=== PATIENT | male | born 1995 | race Caucasian/White ===

== ENCOUNTER 2021-09-26 12:02 | Emergency (ER) | payer OTHER ==
[~2021-09-26] VITALS: Ht 175.3 cm; Wt 76.1 kg
[2021-09-26] MEDS ORDERED: ONDANSETRON PF 4 MG/2 ML VIAL. ONE (12:43)
[2021-09-26] MEDS ORDERED: MORPHINE SULFATE 4 MG/ML INJ. ONE (12:43)
[2021-09-26] MEDS ORDERED: MORPHINE SULFATE 4 MG/ML INJ. IV PRN ×2 (12:45→13:45)
[2021-09-26] MEDS ORDERED: ONDANSETRON PF 4 MG/2 ML VIAL. IVP ONE ×2 (12:45→13:45)
[2021-09-26] MEDS ORDERED: IV NORMAL SALINE 1000ML BAG 1,000 ML IV ONE (12:45)
[2021-09-26] MEDS ORDERED: IOHEXOL 300 MG/ML 100ML VIAL. IV ONE (13:00)
[2021-09-26 13:09] LABS: BASO % 1 % (0-3); EOS % 1 % (0-3); HEMATOCRIT 47.8 % (39.0-53.0); HEMOGLOBIN 16.2 g/dL (13.0-17.5); LYMPH # 2.3 x10^3/uL (1.0-4.8); LYMPH % 43 % (24-48); MEAN CORPUSCULAR HEMOGLOBIN 31 pg (25-35); MEAN CORPUSCULAR HGB CONC 34 g/dL (31-37); MEAN CORPUSCULAR VOLUME 91 fL (79-100); MONO # 0.4 x10^3/uL (0.0-1.1); MONO % 8 % (0-9); NEUT # 2.6 x10^3/uL (1.8-7.7); NEUT % 48 % (31-73); PLATELET COUNT 251 x10^3/uL (140-400); RED BLOOD COUNT 5.24 x10^6/uL (4.30-5.70); WHITE BLOOD COUNT 5.5 x10^3/uL (4.0-11.0)
[2021-09-26] MEDS ORDERED: CONTRAST GIVEN. MC PRN (13:15)
[2021-09-26 13:17] LABS: BACTERIA,URINE 0 /HPF (0-FEW); RBC,URINE 0 /HPF (0-2); WBC,URINE OCC /HPF (0-4)
[2021-09-26 13:20] LABS: CALCIUM 9.1 mg/dL (8.5-10.1); GFR 90.3; POTASSIUM 4.3 mmol/L (3.5-5.1)
--- NOTE | 2021-09-26 13:23 | RAD ---
PQRS Compliance Statement: One or more of the following individualized dose reduction techniques were utilized for this examinat ion: 1. Automated exposure control 2. Adjustment of the mA and/or kV according to patient size 3. Use of iterative reconstruction technique CT ABDOMEN+PELVIS W 09/26/2021 1:02 PM Indication: Abdominal pain, bloody stools COMPARISON: None available. TECHNIQUE: Multiple axial CT images of the abdomen and pelvis were obtained after intravenous demonst ration of nonionic contrast. Coronal and sagittal reformats are provided. FINDINGS: Visualized portions of the lung bases are clear. Heart size is within normal limits. No suspicious hepatic masses are identified. Liver is homogeneous in enhancement. Spleen, bilateral a drenal glands, and pancreas are normal in appearance. Gallbladder is present without adjacent inflamm atory changes. Spleen measures 12.0 cm in oblique craniocaudal dimension. The abdominal aorta is normal in course and caliber. There are no pathologically enlarged lymph nodes in the abdomen and pelvis. There is no abdominal free fluid. There is no free intraperitoneal air. Small and large bowel are normal in caliber. There is no evidence for bowel obstruction. There are no pericolonic inflammatory changes. Appendix is not definitively visualized. No pericecal inflammatory changes are identified. There is atrophy of the left kidney which measures 7.5 cm in craniocaudal dimension as compared to th e right kidney which measures 13.4 cm. Kidneys enhance symmetrically. No suspicious renal mass. No hy dronephrosis. No calculi identified within the ureters or urinary bladder. Urinary bladder is within normal limits given degree of distention. Prostate and seminal vesicles are normal. No suspicious oss eous abnormality is identified. IMPRESSION: No acute abnormalities identified within the abdomen and pelvis. There is atrophy of the left kidney. Appendix is not visualized and may be surgically absent. No pericecal inflammatory changes are identi fied. No bowel obstruction or inflammation. Electronically signed by: Elodia Arambula MD (09/26/2021 1:20 PM) [id number]
[2021-09-26 13:26] LABS: ALBUMIN/GLOBULIN RATIO 1.3 (1.0-1.7); TOTAL BILIRUBIN 0.6 mg/dL (0.2-1.0); TOTAL PROTEIN 7.1 g/dL (6.4-8.2)
--- NOTE | 2021-09-26 13:45 | PHYS DOC ---
Past Medical History Additional Past Medical Histor: PTSD,CHRONIC BACK PAIN,ADHD Past Surgical History: Appendectomy, Other Additional Past Surgical Histo: BACK,KNEE,EYEBROW SURGERY Smoking Status: Former Smoker Alcohol Use: None Adult General Chief Complaint Chief Complaint: ABDOMINAL PAIN HPI HPI Patient is a 25 year old male presenting to the emergency department for evaluation of abdominal pain nausea and bright red blood per rectum. I received a call from [facility] regarding this patient and spoke to the physician there named Ej Young and he says that patient had a scope on August 20 and he had ulcers in the ileum and specimens were taken but the lab lost them. There was some concern for Crohn's disease but no definitive diagnosis has been made at this time. For the past 3 to 4 days patient has been having bright red blood per rectum. He was started on prednisone and Cipro 2 days ago. He had a hemoglobin drawn yesterday that was 15.2 and his white blood cell count was normal but patient says that he is still having severe pain and the physician at [facility] wanted him to get a CT scan here. Review of Systems Review of Systems Constitutional: Denies fever or chills [] Eyes: Denies change in visual acuity, redness, or eye pain [] HENT: Denies nasal congestion or sore throat [] Respiratory: Denies cough or shortness of breath [] Cardiovascular: No additional information not addressed in HPI [] GI: + abdominal pain, nausea. No vomiting. + bloody stools. No diarrhea [] : Denies dysuria or hematuria [] Musculoskeletal: Denies back pain or joint pain [] Integument: Denies rash or skin lesions [] Neurologic: Denies headache, focal weakness or sensory changes [] Endocrine: Denies polyuria or polydipsia [] All other systems were reviewed and found to be within normal limits, except as documented in this note. Current Medications Current Medications Current Medications Medications (Trade) Dose Ordered Sig/Daisy Start Time Stop Time Status Last Admin Dose Admin Info (CONTRAST GIVEN -- Rx MONITORING) 1 each PRN DAILY PRN 09/26/21 13:15 09/28/21 13:14 Iohexol (Omnipaque 300 Mg/ml) 75 ml 1X ONCE 09/26/21 13:00 09/26/21 13:03 DC 09/26/21 13:08 75 ML Morphine Sulfate (Morphine Sulfate) 4 mg 1X PRN 09/26/21 13:45 Ondansetron HCl (Zofran) 4 mg 1X ONCE 09/26/21 13:45 09/26/21 13:46 Sodium Chloride 1,000 ml @ 1,000 mls/hr 1X ONCE 09/26/21 12:45 09/26/21 13:44 DC Allergies Allergies Allergies Coded Allergies Type Severity Reaction Last Updated Verified amoxicillin Allergy Intermediate Unknown 09/26/21 Yes diphenhydramine Allergy Intermediate Unknown 09/26/21 Yes Physical Exam Physical Exam Constitutional: Well developed, well nourished, no acute distress, non-toxic appearance. [] HENT: Normocephalic, atraumatic, bilateral external ears normal, oropharynx moist, no oral exudates, nose normal. [] Eyes: PERRLA, EOMI, conjunctiva normal, no discharge. [] Neck: Normal range of motion, no tenderness, supple, no stridor. [] Cardiovascular:Heart rate regular rhythm, no murmur [] Lungs & Thorax: Bilateral breath sounds clear to auscultation [] Abdomen: Positive diffuse abdominal tenderness to palpation with no localized pain rebound or guarding Skin: Warm, dry, no erythema, no rash. [] Back: No tenderness, no CVA tenderness. [] Extremities: No tenderness, no cyanosis, no clubbing, ROM intact, no edema. [] Neurologic: Alert and oriented X 3, normal motor function, normal sensory function, no focal deficits noted. [] Current Patient Data Vital Signs Vital Signs Date Time Temp Pulse Resp B/P (MAP) Pulse Ox O2 Delivery O2 Flow Rate FiO2 09/26/21 12:18 98.4 79 17 138/88 (105) 95 Room Air 98.4 Lab Values Laboratory Tests Test 09/26/21 12:40 09/26/21 12:50 Urine Collection Type Void Urine Color (Auto) Light yellow Urine Turbidity Clear Urine pH (Auto) 5.5 (<5.0-8.0) Urine Specific Mobile 1.020 (1.000-1.030) Urine Protein (Auto) Negative mg/dL (Negative) Urine Glucose (Auto)(UA) Negative mg/dL (Negative) Urine Ketones (Auto) Negative mg/dL (Negative) Urine Blood (Auto) Negative (Negative) Urine Nitrite Negative (Negative) Urine Bilirubin (Auto) Negative (Negative) Urine Urobilinogen (Auto) Normal mg/dL (Normal) Urine Leukocyte Esterase (Auto) Negative (Negative) Urine RBC 0 /HPF (0-2) Urine WBC Occ /HPF (0-4) Urine Squamous Epithelial Cells Occ /LPF Urine Bacteria 0 /HPF (0-FEW) White Blood Count 5.5 x10^3/uL (4.0-11.0) Red Blood Count 5.24 x10^6/uL (4.30-5.70) Hemoglobin 16.2 g/dL (13.0-17.5) Hematocrit 47.8 % (39.0-53.0) Mean Corpuscular Volume 91 fL (79-100) Mean Corpuscular Hemoglobin 31 pg (25-35) Mean Corpuscular Hemoglobin Concent 34 g/dL (31-37) Red Cell Distribution Width 13.0 % (11.5-14.5) Platelet Count 251 x10^3/uL (140-400) Neutrophils (%) (Auto) 48 % (31-73) Lymphocytes (%) (Auto) 43 % (24-48) Monocytes (%) (Auto) 8 % (0-9) Eosinophils (%) (Auto) 1 % (0-3) Basophils (%) (Auto) 1 % (0-3) Neutrophils # (Auto) 2.6 x10^3/uL (1.8-7.7) Lymphocytes # (Auto) 2.3 x10^3/uL (1.0-4.8) Monocytes # (Auto) 0.4 x10^3/uL (0.0-1.1) Eosinophils # (Auto) 0.0 x10^3/uL (0.0-0.7) Basophils # (Auto) 0.0 x10^3/uL (0.0-0.2) Sodium Level 142 mmol/L (136-145) Potassium Level 4.3 mmol/L (3.5-5.1) Chloride Level 105 mmol/L (98-107) Carbon Dioxide Level 30 mmol/L (21-32) Anion Gap 7 (6-14) Blood Urea Nitrogen 14 mg/dL (8-26) Creatinine 1.0 mg/dL (0.7-1.3) Estimated GFR (Cockcroft-Gault) 90.3 BUN/Creatinine Ratio 14 (6-20) Glucose Level 93 mg/dL (70-99) Calcium Level 9.1 mg/dL (8.5-10.1) Total Bilirubin 0.6 mg/dL (0.2-1.0) Aspartate Amino Transferase (AST) 39 U/L (15-37) H Alanine Aminotransferase (ALT) 116 U/L (16-63) H Alkaline Phosphatase 63 U/L (46-116) Total Protein 7.1 g/dL (6.4-8.2) Albumin 4.0 g/dL (3.4-5.0) Albumin/Globulin Ratio 1.3 (1.0-1.7) Lipase 97 U/L (73-393) Laboratory Tests 09/26/21 12:50 Laboratory Tests 09/26/21 12:50 EKG EKG [] Radiology/Procedures Radiology/Procedures [] Course & Med Decision Making Course & Med Decision Making Patient's hemoglobin has remained stable there is no active signs of severe GI bleed. His CT scan came back negative for acute process as well. All incidental findings were discussed and I did call his physician at [facility] and let him know the results as well. Plan will be for him to continue on the prednisone and Cipro follow-up with his doctor as an outpatient and come back to emergency department sooner with worsening pain fevers vomiting or other GI concerns patient aware and agreeable with plan and verbalized understanding of above instructions.. Dragon Disclaimer Dragon Disclaimer This electronic medical record was generated, in whole or in part, using a voice recognition dictation system. Departure Departure Impression: Primary Impression: Abdominal pain Additional Impression: Bloody stools Disposition: 07 LEFT AWOL/ELOPED Condition: STABLE Patient Instructions: Abdominal Pain (Nonspecific) Problem Qualifiers Primary Impression: Abdominal pain Abdominal location: generalized Qualified Codes: R10.84 - Generalized abdominal pain ROCAEL SOUZA DO Sep 26, 2021 13:45
[2021-09-26 14:24] VITALS: BP 119/80
== END 2021-09-26 14:59 | disposition left against medical advice (07) ==
LOC: ER 12:02 → EEVIPCON 12:02 → ER 14:59
DX: R10.84 Generalized abdominal pain (principal); R11.0 Nausea; K92.1 Melena; G89.29 Other chronic pain; Z87.891 Personal history of nicotine dependence; Z90.89 Acquired absence of other organs; Z88.1 Allergy status to other antibiotic agents; Z88.5 Allergy status to narcotic agent
CPT/HCPCS: 36415; 74177; 80053; 81001; 83690; 85025; 86850; 86900; 86901; 96360; 99285; J7030; Q9967